=== PATIENT | male | born 1970 | race Caucasian/White ===

== ENCOUNTER 2017-12-11 15:56 | Observation (INO) | payer OTHER ==
[~2017-12-11] VITALS: Ht 182.9 cm; Wt 89.3 kg
[~2017-12-11 15:56] MED LIST: AMLO5 PO; ASPI81CH PO; HYDACE5 PO; [UNRECOGNIZED DRUG - REMARK]; [UNRECOGNIZED DRUG - REMARK]
[2017-12-11 16:38] LABS: BASOPHILS ABSOLUTE AUTO 0.06 K/mm3 (0.00-0.23); BASOPHILS PERCENT AUTO 1 % (0-2); EOSINOPHILS ABSOLUTE AUTO 0.09 K/mm3 (0.00-0.68); EOSINOPHILS PERCENT AUTO 2 % (0-6); Hemoglobin 14.2 g/dL (13.5-17.5); IMMATURE GRAN ABSOLUTE AUTO 0.01 K/mm3 (0.00-0.10); IMMATURE GRAN PERCENT AUTO 0 % (0-1); LYMPHOCYTES ABSOLUTE AUTO 2.22 K/mm3 (0.84-5.20); LYMPHOCYTES PERCENT AUTO 40 % (21-46); MONOCYTES ABSOLUTE AUTO 0.66 K/mm3 (0.16-1.47); MONOCYTES PERCENT AUTO 12 % (4-13); Mean Corpuscular HGB 29.6 pg (26.0-34.0); Mean Corpuscular HGB Conc 35.5 g/dL (31.5-36.5); Mean Corpuscular Volume 83 fL (80-100); NEUTROPHILS ABSOLUTE AUTO 2.55 K/mm3 (1.96-9.15); NEUTROPHILS PERCENT AUTO 46 % (41-73); Platelet Count 248 K/mm3 (150-400); RDW Coefficient Variation 12.5 % (11.7-14.2); RDW Standard Deviation 38.3 fL (35.1-46.3); White Blood Cell Count 5.59 K/mm3 (4.00-11.30)
[2017-12-11 16:50] LABS: Troponin I <0.015 ng/mL (0.000-0.040)
[2017-12-11 16:51] LABS: Alanine Aminotransfer (ALT/SGP 40 U/L (12-78); Albumin, Blood 4.6 g/dL (3.4-5.0); Albumin/Globulin Ratio 1.3 (0.8-1.8); Alk Phos 58 U/L (50-136); Anion Gap 10 mmol/L (6-16); Aspartate Aminotrans (AST/SGOT 24 U/L (12-37); Bilirubin, Total 0.3 mg/dL (0.1-1.0); Blood Urea Nitrogen 11 mg/dL (8-24); CO2, Blood 25 mmol/L (21-32); Calcium, Blood 9.1 mg/dL (8.5-10.1); Chloride, Blood 99 mmol/L (98-108); Creatinine, Blood 0.79 mg/dL (0.60-1.20); Globulin, Blood 3.5 g/dL (2.2-4.0); Glomerular Filtration Rate >60 (60-); Glucose, Blood 93 mg/dL (70-99); Potassium, Blood 3.5 mmol/L (3.5-5.5); Sodium, Blood 134 mmol/L (136-145); Total Protein, Blood 8.1 g/dL (6.4-8.2)
[2017-12-12] MEDS ORDERED: MECL12.5 PO (16:09)
[2017-12-12] MEDS ORDERED: ONDA4ODT PO (16:10)
== END 2017-12-12 16:41 | disposition home or self-care (01) ==
LOC: ER 15:56 → MEDS 15:57
PROVIDERS: Physician Assistant
DX: R42 Dizziness and giddiness (principal); I11.0 Hypertensive heart disease with heart failure; I50.9 Heart failure, unspecified; R11.2 Nausea with vomiting, unspecified; Z88.5 Allergy status to narcotic agent; Z79.82 Long term (current) use of aspirin; Z79.899 Other long term (current) drug therapy; Z98.890 Other specified postprocedural states
CPT/HCPCS: 36415; 69209; 70450; 70553; 71046; 80053; 84484; 85025; 93005; 93010; 96361; 96374; 96375; 96376; 99285; A9577; C9113; G0378; J2405; J2765; J7030

== ENCOUNTER → 2017-12-20 | Outpatient (CLI) | payer OTHER ==
[~2017-12-20] MED LIST changes: +MECL12.5 PO; +ONDA4ODT PO
== END | disposition home or self-care (01) ==
LOC: OLS 09:26 → LAB SHORT 09:26 → LAB FUT 12-18 13:05
DX: D35.2 Benign neoplasm of pituitary gland (principal)
CPT/HCPCS: 81050; 82530

== ENCOUNTER 2022-09-11 11:54 | Day surgery (SDC) | payer OTHER ==
[~2022-09-11] VITALS: Ht 182.9 cm; Wt 107.4 kg
[~2022-09-11 11:54] MED LIST changes: +Flonase 0.05% N16 GM; +GUAI600T33 PO; +LORA10ER PO; +LOSARTAN POTAS100 M1 PO
== END 2022-09-11 13:48 | disposition home or self-care (01) ==
LOC: ORSCSDS 11:54
PROVIDERS: Surgery
PROC: 0DBM8ZX Excision of Descending Colon, Via Natural or Artificial Opening Endoscopic, Diagnostic (ICD-10-PCS; principal; 2022-09-11 13:00)
DX: Z12.11 Encounter for screening for malignant neoplasm of colon (principal); K63.5 Polyp of colon; I10 Essential (primary) hypertension; K21.9 Gastro-esophageal reflux disease without esophagitis; G47.33 Obstructive sleep apnea (adult) (pediatric); E66.9 Obesity, unspecified; Z68.32 Body mass index [BMI] 32.0-32.9, adult; Z79.899 Other long term (current) drug therapy
CPT/HCPCS: 88305; J2704; J7120